=== PATIENT | male | born 1970 | race Caucasian/White ===

== ENCOUNTER 2016-09-16 15:07 | Emergency (ER) | payer MEDICARE ==
[2016-09-16] MEDS ORDERED: NORMAL SALINE 1000 ML 1,000 ML IV ONE (15:19)
--- NOTE | 2016-09-16 15:37 | ER Document Report ---
ED Substance Abuse / Acc. OD - General Mode of Arrival: Medic Information source: Patient, Emergency Med Personnel TRAVEL OUTSIDE OF THE [place] IN LAST 30 DAYS: No <VIET HYDE - Last Filed: 09/16/16 16:19> <ALIDA SABA - Last Filed: 09/16/16 19:48> - General Chief Complaint: Possible Overdose Stated Complaint: WEAKNESS Time Seen by Provider: 09/16/16 15:18 Notes: Patient is a 46 year old male presenting to the emergency department for possible overdose and seizures. Patient's son called EMS because the patient has taken 38 Klonopin (1 mg) over the past 48 hours. Patient denies any suicidal ideation and states he was just trying to get some sleep. Patient complains that he has had 4 seizures in the past 2 days as well. Patient takes kepra for his seizure disorder. Patient states he has been drinking plenty of fluids over the past several days. Patient also complains of a headache. Patient states he feels like he is going to have another seizure. Patient has no known drug allergies. (VIET HYDE) - Related Data Allergies/Adverse Reactions: No Known Allergies Allergy (Verified 09/16/16 15:29) Past Medical History - General Information source: Patient - Social History Smoking Status: Current Every Day Smoker Chew tobacco use (# tins/day): No Frequency of alcohol use: Occasional Drug Abuse: Prescription drugs Family History: None Patient has suicidal ideation: No Patient has homicidal ideation: No Neurological Medical History: Reports: Hx Seizures Psychiatric Medical History: Reports: Hx Depression Past Surgical History: Reports: Hx Orthopedic Surgery - Immunizations Hx Diphtheria, Pertussis, Tetanus Vaccination: No <VIET HYDE - Last Filed: 09/16/16 16:19> Review of Systems - Review of Systems Constitutional: No symptoms reported EENT: No symptoms reported Cardiovascular: No symptoms reported Respiratory: No symptoms reported Gastrointestinal: No symptoms reported Genitourinary: No symptoms reported Male Genitourinary: No symptoms reported Musculoskeletal: No symptoms reported Skin: No symptoms reported Hematologic/Lymphatic: No symptoms reported Neurological/Psychological: See HPI. denies: Suicidal ideation -: Yes All other systems reviewed and negative <VIET HYDE - Last Filed: 09/16/16 16:19> Physical Exam - Vital signs Interpretation: Normal - General General appearance: Alert, Other - Disheveled appearing In distress: Mild - HEENT Head: Normocephalic, Atraumatic Eyes: Normal Pupils: PERRL Mucous membranes: Dry - Respiratory Respiratory status: No respiratory distress Chest status: Nontender Breath sounds: Normal Chest palpation: Normal - Cardiovascular Rhythm: Regular Heart sounds: Normal auscultation Murmur: No - Abdominal Inspection: Normal Distension: No distension Bowel sounds: Normal Tenderness: Nontender Organomegaly: No organomegaly - Back Back: Normal, Nontender - Extremities General upper extremity: Normal inspection, Normal ROM, Normal strength General lower extremity: Normal inspection, Normal ROM, Normal strength - Neurological Neuro grossly intact: Yes Cognition: Normal Orientation: AAOx4 [place] Coma Scale Eye Opening: Spontaneous [place] Coma Scale Verbal: Oriented Jolanta Coma Scale Motor: Obeys Commands [place] Coma Scale Total: 15 Speech: Normal - Psychological Associated symptoms: Normal affect, Normal mood - Skin Skin Temperature: Warm Skin Moisture: Dry <VIET HYDE - Last Filed: 09/16/16 16:19> <ALIDA SABA - Last Filed: 09/16/16 19:48> - Vital signs Vitals: Temp Pulse Resp BP Pulse Ox 98.2 F 79 20 138/71 H 95 09/16/16 15:20 09/16/16 15:20 09/16/16 15:20 09/16/16 15:20 09/16/16 15:20 Course - Laboratory Result Diagrams: 09/16/16 15:44 09/16/16 15:44 <VIET HYDE - Last Filed: 09/16/16 16:19> - Laboratory Result Diagrams: 09/16/16 15:44 09/16/16 15:44 - Diagnostic Test Radiology reviewed: Reports reviewed <ALIDA SABA - Last Filed: 09/16/16 19:48> - Re-evaluation Re-evalutation: 09/16/16 18:12 Patient with no acute findings on blood work. Patient with stable vitals. Head CT within normal limits. The patient states that he has felt like he might have a seizure here in the emergency department. I have given him Valium and loaded him with Keppra. Patient states that he feels better. He is eating and drinking without a problem. He has had no further seizure activity or tremulousness. I have offered to transfer the patient to a facility with neurology. The patient adamantly refuses transfer and states that he feels better and he would prefer to go home. Patient states that he does not have any Klonopin at home. I will give him 6 Klonopin and he is to wean himself off of it so that he does not have benzodiazepine withdrawal seizures. Patient understands and agrees with this plan. 09/16/16 18:45 Son present in the emergency department, would like to know why the patient is receiving a prescription for Klonopin. Explained that the patient needs to wean himself off of Klonopin so that he does not have a seizure. Mom states that the patient actually has another 50 Klonopin at home. Instructed son do not fill the prescription. Apparently the patient recently moved in with his son and his so that he could try to get help with his drug addiction. Instructed to follow-up with [facility]. Son agrees with this plan and is grateful for care. He will watch the patient's medications at home. (ALIDA SABA) - Vital Signs Vital signs: Temp Pulse Resp BP Pulse Ox 97.7 F 76 18 125/88 H 96 09/16/16 18:30 09/16/16 18:30 09/16/16 18:30 09/16/16 18:30 09/16/16 18:30 - Laboratory Laboratory results interpreted by me: 09/16/16 09/16/16 15:44 15:44 RBC 6.08 H Hgb 13.4 L MCV 72 L MCH 22.0 L MCHC 30.7 L RDW 17.7 H Chloride 111 H Total Protein 6.1 L Salicylates < 1.0 L Acetaminophen < 10 L Discharge <VIET HYDE - Last Filed: 09/16/16 16:19> <ALIDA SABA - Last Filed: 09/16/16 19:48> - Discharge Clinical Impression: Seizure disorder, Benzodiazepine dependence, continuous Overdose Qualifiers: Encounter type: initial encounter Injury intent: accidental or unintentional Qualified Code(s): T50.901A - Poisoning by unspecified drugs, medicaments and biological substances, accidental (unintentional), initial encounter Condition: Stable Disposition: HOME, SELF-CARE Instructions: Seizure, Known Epileptic ([facility]), Overdose / Ingestion ([facility]) Additional Instructions: Please follow-up with your doctor tomorrow. Please wean yourself off of Klonopin. Please follow-up with a neurologist. Prescriptions: Clonazepam [Klonopin 1 mg Tablet] 1 mg PO PRN PRN #6 tablet PRN Reason: Referrals: JOY TENA MD [Primary Care Provider] - Follow up as needed ZAC MEEHAN MD [ACTIVE STAFF] - Follow up tomorrow Scribe Attestation: 09/16/16 19:48 I personally performed the services described in the documentation, reviewed and edited the documentation which was dictated to the scribe in my presence, and it accurately records my words and actions. (ALIDA SABA) Scribe Documentation - Scribe Written by Scribe:: Lakhwinder Martell 09/16/16 16:02 acting as scribe for :: Digna <VIET HYDE - Last Filed: 09/16/16 16:19>
[2016-09-16] MEDS ORDERED: LEVETIRACETAM 1500 MG/NACL-ISO 100 ML IV ONE (15:45)
[2016-09-16] MEDS ORDERED: DIAZEPAM INJ 10 MG/2 ML DISP.SYRIN IV ONE (15:45)
[2016-09-16 16:01] LABS: ABSOLUTE EOSINOPHILS # (AUTO) 0.5 10^3/uL (0.0-0.6); ABSOLUTE LYMPHOCYTES (AUTO) 1.6 10^3/uL (0.5-4.7); ABSOLUTE MONOCYTES (AUTO) 0.5 10^3/uL (0.1-1.4); ABSOLUTE NEUT (AUTO) 6.2 10^3/uL (1.7-8.2); BASOPHILS % (AUTO) 0.5 % (0-2); EOSINOPHILS % (AUTO) 5.9 % (0-6); HEMATOCRIT 43.6 % (37.9-51.0); HEMOGLOBIN 13.4 g/dL (13.5-17.0); HGB HCT DIFFERENCE -3.4; LYMPHOCYTES % (AUTO) 17.6 % (13-45); MEAN CORPUSCULAR HGB CONC 30.7 g/dL (32.0-36.0); MEAN CORPUSCULAR VOLUME 72 fl (80-97); MONOCYTES % (AUTO) 5.8 % (3-13); RED BLOOD COUNT 6.08 10^6/uL (4.35-5.55); RED CELL DISTRIBUTION WIDTH 17.7 % (11.5-14.0); SEGMENTED NEUTROPHILS % (AUTO) 70.2 % (42-78); WHITE BLOOD COUNT 8.9 10^3/uL (4.0-10.5)
[2016-09-16 16:11] LABS: ALANINE AMINOTRANSFERASE 37 U/L (21-72); ALBUMIN 3.7 g/dL (3.5-5.0); ALKALINE PHOSPHATASE 92 U/L (38-126); ANION GAP 9 (5-19); ASPARTATE AMINO TRANSFERASE 23 U/L (17-59); BILIRUBIN,DIRECT 0.3 mg/dL (0.0-0.4); BILIRUBIN,TOTAL 0.4 mg/dL (0.2-1.3); BLOOD UREA NITROGEN 10 mg/dL (7-20); CALCIUM 9.1 mg/dL (8.4-10.2); CARBON DIOXIDE 24 mmol/L (22-30); CHLORIDE 111 mmol/L (98-107); CREATININE RESULT 0.92 mg/dL (0.52-1.25); GLUCOSE 99 mg/dL (75-110); POTASSIUM 4.4 mmol/L (3.6-5.0); SODIUM 143.6 mmol/L (137-145); TOTAL PROTEIN 6.1 g/dL (6.3-8.2)
[2016-09-16 16:14] LABS: ALCOHOL < 10 mg/dL (NONE DETECTED)
--- NOTE | 2016-09-16 17:18 | RADIOLOGY REPORT (SQ) ---
EXAM DESCRIPTION: CT HEAD WITHOUT COMPLETED DATE/TIME: 09/16/2016 5:08 pm REASON FOR STUDY: head injury, pain COMPARISON: None. TECHNIQUE: Axial images acquired through the brain without intravenous contrast. Images reviewed wi th bone, brain and subdural windows. Images stored on PACS. All CT scanners at this facility use dose modulation, iterative reconstruction, and/or weight based d osing when appropriate to reduce radiation dose to as low as reasonably achievable (ALARA). [facility]: Dose Right [facility]: CareDose [facility]: Dose Right [facility]: Teradose 4D [facility]: [employer] RADIATION DOSE: 64.61 mGy. LIMITATIONS: None. FINDINGS: VENTRICLES: Normal size and contour. CEREBRUM: No masses. No hemorrhage. No midline shift. Normal bryant/white matter differentiation. N o evidence for acute infarction. CEREBELLUM: No masses. No hemorrhage. No alteration of density. No evidence for acute infarction. EXTRAAXIAL SPACES: No fluid collections. No masses. ORBITS AND GLOBE: No intra- or extraconal masses. Normal contour of globe without masses. CALVARIUM: Prior right occipital craniotomy. No acute fracture. PARANASAL SINUSES: No fluid or mucosal thickening. SOFT TISSUES: No mass or hematoma. OTHER: No other significant finding. IMPRESSION: No acute intracranial abnormality identified. No skull fracture. TECHNICAL DOCUMENTATION: JOB ID: [id number] Quality ID # [id number]: Final reports with documentation of one or more dose reduction techniques (e.g., Au tomated exposure control, adjustment of the mA and/or kV according to patient size, use of iterative reconstruction technique) 2010 [employer]- All Rights Reserved
[2016-09-16 18:36] VITALS: BP 125/88
--- NOTE | 2016-09-17 13:01 | EKG REPORT ---
SEVERITY:- ABNORMAL ECG - SINUS RHYTHM RIGHT BUNDLE BRANCH BLOCK : Confirmed by: Stephanie Walter MD 17-Sep-2016 13:00:48
== END 2016-09-16 18:33 | disposition home or self-care (01) ==
LOC: ER 15:07
DX: T42.4X1A Poisoning by benzodiazepines, accidental (unintentional), initial encounter (principal); G40.909 Epilepsy, unspecified, not intractable, without status epilepticus; F13.20 Sedative, hypnotic or anxiolytic dependence, uncomplicated; R53.1 Weakness; F17.200 Nicotine dependence, unspecified, uncomplicated
CPT/HCPCS: 93005; 99284; 96374; 96375; 36415; 80307 ×3; 85025; 80053; 70450; 93010; J3360; J7030; J1953

== ENCOUNTER 2016-09-29 00:27 | Inpatient (IN) | payer MEDICARE ==
--- NOTE | 2016-09-29 00:53 | ER Document Report ---
ED General - General Chief Complaint: Altered Mental Status Stated Complaint: ALTERED METAL STATUS Time Seen by Provider: 09/29/16 00:39 Notes: Patient is a 46-year-old male who comes emergency department for altered mental status. However EMS reports the patient has a history of violent behavior and suicide attempts, he is on multiple psychiatric medications including Haldol, he reportedly has been taking more of his medications that he is supposed to with multiple missing pills, he is currently living with his son. Patient unable to tell me where he is, he has also been reportedly having visual hallucinations. Patient denies any pain. No other family with him at this time , difficult to obtain history from patient. TRAVEL OUTSIDE OF THE [place] IN LAST 30 DAYS: No - Related Data Allergies/Adverse Reactions: No Known Allergies Allergy (Verified 09/16/16 15:29) Past Medical History - General Information source: Patient - Social History Smoking Status: Never Smoker Drug Abuse: None Lives with: Family Family History: None - Past Medical History Cardiac Medical History: Reports: Other - pacemaker Neurological Medical History: Reports: Hx Seizures, Other - hx TBI Renal/ Medical History: Denies: Hx Peritoneal Dialysis Psychiatric Medical History: Reports: Hx Depression Past Surgical History: Reports: Hx Orthopedic Surgery - Immunizations Hx Diphtheria, Pertussis, Tetanus Vaccination: No Review of Systems - Review of Systems Constitutional: No symptoms reported EENT: No symptoms reported Cardiovascular: No symptoms reported Respiratory: No symptoms reported Gastrointestinal: No symptoms reported Genitourinary: No symptoms reported Male Genitourinary: No symptoms reported Musculoskeletal: No symptoms reported Skin: No symptoms reported Hematologic/Lymphatic: No symptoms reported Neurological/Psychological: See HPI Physical Exam - Vital signs Vitals: Temp Pulse Resp BP Pulse Ox 98 F 97 12 121/90 H 90 L 09/29/16 00:40 09/29/16 00:40 09/29/16 00:40 09/29/16 00:40 09/29/16 00:40 Interpretation: Normal - General General appearance: Appears well, Alert In distress: None - HEENT Head: Normocephalic, Atraumatic Eyes: Normal Extraocular movements intact: Yes Eyelashes: Normal Pupils: PERRL - Respiratory Respiratory status: No respiratory distress Chest status: Nontender Breath sounds: Normal. No: Decreased air movement Chest palpation: Normal - Cardiovascular Rhythm: Regular, Tachycardia Heart sounds: Normal auscultation, S1 appreciated, S2 appreciated Murmur: No - Abdominal Inspection: Normal Distension: No distension Bowel sounds: Normal Tenderness: Nontender Organomegaly: No organomegaly - Back Back: Normal, Nontender - Extremities General upper extremity: Normal inspection, Nontender, Normal color, Normal ROM , Normal temperature General lower extremity: Normal inspection, Nontender, Normal color, Normal ROM , Normal temperature, Normal weight bearing. No: Tino's sign - Neurological Neuro grossly intact: Yes Cognition: Normal Orientation: AAOx4 [place] Coma Scale Eye Opening: Spontaneous Jolanta Coma Scale Verbal: Oriented [place] Coma Scale Motor: Obeys Commands Jol[place] Coma Scale Total: 15 Speech: Normal Motor strength normal: LUE, RUE, LLE, RLE Sensory: Normal - Psychological Associated symptoms: Other - Patient with a somewhat flat affect. He occasionally makes bizarre statements. However he is cooperative and calm, he does not appear agitated, he does not appear to be responding to any internal stimuli - Skin Skin Temperature: Warm Skin Moisture: Dry Skin Color: Normal Course - Re-evaluation Re-evalutation: Patient with occasional confusion, but is not hallucinating, denies SI or HI, is not in distress. He cooperates with a normal neurological exam otherwise. Patient noted to be hypoxic, he actually drops down into the upper 80s off of oxygen, when placed on nasal cannula this returns to normal. Lungs sound clear , no tachypnea, no cough, no fever, patient borderline tachycardic. CBC, chemistry unremarkable, chest x-ray showing questionable vascular congestion although I do not hear Rales on exam. Patient has a pacemaker. Patient continues to have hypoxia when oxygen is turned off. Because of this CTA was ordered, this shows multifocal pneumonia. Given Levaquin. Patient was discussed with Dr. Lizama. She has a head with no abnormality. Venous blood gas will have to be repeated. Psychiatry consult placed, discussed with Dr. Jamil, patient will be admitted to the [facility]. - Vital Signs Vital signs: Temp Pulse Resp BP Pulse Ox 98 F 97 17 118/85 96 09/29/16 00:40 09/29/16 00:40 09/29/16 06:01 09/29/16 06:01 09/29/16 06:01 - Laboratory Result Diagrams: 09/29/16 00:55 09/29/16 00:55 Laboratory results interpreted by me: 09/29/16 09/29/16 09/29/16 00:55 00:55 06:38 RBC 6.24 H MCV 72 L MCH 22.4 L MCHC 31.2 L RDW 17.2 H Urine Blood SMALL H Salicylates < 1.0 L Acetaminophen < 10 L Discharge - Discharge Clinical Impression: Hypoxia, Multifocal pneumonia, Confusion, History of traumatic brain injury Condition: Stable Disposition: ADMITTED INPATIENT Admitting Provider: Hospitalist Unit Admitted: IMCU Referrals: MARINE ALVAREZ MD [Primary Care Provider] - Follow up as needed
[2016-09-29 01:11] LABS: ABSOLUTE EOSINOPHILS # (AUTO) 0.1 10^3/uL (0.0-0.6); ABSOLUTE LYMPHOCYTES (AUTO) 1.4 10^3/uL (0.5-4.7); ABSOLUTE MONOCYTES (AUTO) 0.7 10^3/uL (0.1-1.4); BASOPHILS % (AUTO) 0.5 % (0-2); EOSINOPHILS % (AUTO) 1.4 % (0-6); HEMATOCRIT 44.9 % (37.9-51.0); HGB HCT DIFFERENCE -2.9; LYMPHOCYTES % (AUTO) 13.4 % (13-45); MEAN CORPUSCULAR HEMOGLOBIN 22.4 pg (27.0-33.4); MEAN CORPUSCULAR HGB CONC 31.2 g/dL (32.0-36.0); MEAN CORPUSCULAR VOLUME 72 fl (80-97); MONOCYTES % (AUTO) 6.7 % (3-13); RED BLOOD COUNT 6.24 10^6/uL (4.35-5.55); RED CELL DISTRIBUTION WIDTH 17.2 % (11.5-14.0); WHITE BLOOD COUNT 10.3 10^3/uL (4.0-10.5)
[2016-09-29 01:20] LABS: BLOOD UREA NITROGEN 10 mg/dL (7-20); CALCIUM 9.6 mg/dL (8.4-10.2); CREATININE RESULT 0.81 mg/dL (0.52-1.25); GLUCOSE 90 mg/dL (75-110)
[2016-09-29 01:21] LABS: ALANINE AMINOTRANSFERASE 44 U/L (21-72); ALBUMIN 4.2 g/dL (3.5-5.0); ALKALINE PHOSPHATASE 123 U/L (38-126); ANION GAP 13 (5-19); ASPARTATE AMINO TRANSFERASE 28 U/L (17-59); BILIRUBIN,DIRECT 0.4 mg/dL (0.0-0.4); BILIRUBIN,TOTAL 0.6 mg/dL (0.2-1.3); CARBON DIOXIDE 27 mmol/L (22-30); CHLORIDE 101 mmol/L (98-107); POTASSIUM 4.1 mmol/L (3.6-5.0); SODIUM 140.8 mmol/L (137-145); TOTAL PROTEIN 6.8 g/dL (6.3-8.2)
[2016-09-29 01:22] LABS: ALCOHOL < 10 mg/dL (NONE DETECTED)
--- NOTE | 2016-09-29 01:35 | RADIOLOGY REPORT (SQ) ---
EXAM DESCRIPTION: CHEST SINGLE VIEW COMPLETED DATE/TIME: 09/29/2016 1:22 am REASON FOR STUDY: borderline low oxygen level COMPARISON: None. EXAM PARAMETERS: NUMBER OF VIEWS: One view. TECHNIQUE: Single frontal radiographic view of the chest acquired. RADIATION DOSE: NA LIMITATIONS: None. FINDINGS: LUNGS AND PLEURA: Moderate lung volumes. Pulmonary vascular congestion. Vessel artifact or 0.4 cm possible calcified granuloma of the left mid lung field. MEDIASTINUM AND HILAR STRUCTURES: No masses. Contour normal. HEART AND VASCULAR STRUCTURES: Heart normal in size. Normal vasculature. BONES: No acute findings. HARDWARE: Electronic stimulation device with left nuchal leads. OTHER: No other significant finding. IMPRESSION: Pulmonary vascular congestion. Moderate lung volumes. TECHNICAL DOCUMENTATION: JOB ID: [id number]
[2016-09-29 03:15] LABS: CREATINE KINASE MB 1.16 ng/mL (<4.55)
[2016-09-29 03:22] LABS: TROPONIN I < 0.012 ng/mL
--- NOTE | 2016-09-29 05:49 | RADIOLOGY REPORT (SQ) ---
EXAM DESCRIPTION: CTA CHEST COMPLETED DATE/TIME: 09/29/2016 5:25 am REASON FOR STUDY: hypoxia COMPARISON: CR, same day. TECHNIQUE: CT scan of the chest performed using helical scanning technique with dynamic intravenous contrast injection. Images reviewed with lung, soft tissue and bone windows. Reconstructed coronal and sagittal MPR images reviewed. Additional 3 dimensional post-processing performed to develop Maximal Intensity Projection images (NV P). All images stored on PACS. All CT scanners at this facility use dose modulation, iterative reconstruction, and/or weight based d osing when appropriate to reduce radiation dose to as low as reasonably achievable (ALARA). [facility]: Dose Right [facility]: CareDose [facility]: Dose Right [facility]: Teradose 4D [facility]: [employer] CONTRAST TYPE AND DOSE: 100 ml Isovue-300 RENAL FUNCTION: Creatinine 0.8 RADIATION DOSE: Up-to-date CT equipment and radiation dose reduction techniques were employed. CTDIv ol: 52.2 mGy. DLP: 1365 mGy-cm. . LIMITATIONS: None. FINDINGS: LUNGS AND PLEURA: Small consolidative opacity of the superior segment of the left lower lo be. Small patchiness of the lingula. Small scattered atelectasis or scar bilaterally. Small intrap arenchymal cystic emphysema focally of the right upper lobe along the oblique fissure. AORTA AND GREAT VESSELS: No aneurysm or dissection. HEART: No pericardial effusion. Small coronary arterial calcification. PULMONARY ARTERIES: No emboli visualized in the main pulmonary arteries or the segmental branches. HILAR AND MEDIASTINAL STRUCTURES: No identified masses or abnormal nodes. HARDWARE: Left cardiac stimulation device and leads. UPPER ABDOMEN: No significant findings. Limited exam. THYROID AND OTHER SOFT TISSUES: No masses. No adenopathy. BONES: No acute or significant finding. 3D MIPS: Confirm above findings. OTHER: No other significant finding. IMPRESSION: Small multifocal pneumonia, atelectasis, and/or scar. No pulmonary emboli. TECHNICAL DOCUMENTATION: JOB ID: [id number] Quality ID # [id number]: Final reports with documentation of one or more dose reduction techniques (e.g., Au tomated exposure control, adjustment of the mA and/or kV according to patient size, use of iterative reconstruction technique) 2010 [email or web address]- All Rights Reserved
[2016-09-29] MEDS ORDERED: LEVOFLOXACIN 750 MG/D5W RTU 150 ML IV ONE (06:04)
[2016-09-29 07:06] LABS: APPEARANCE,URINE CLEAR; BILIRUBIN,URINE NEGATIVE (NEGATIVE); GLUCOSE, URINE NEGATIVE (NEGATIVE); KETONES,URINE NEGATIVE (NEGATIVE); LEUKOCYTE ESTERASE,URINE NEGATIVE (NEGATIVE); NITRITE,URINE NEGATIVE (NEGATIVE); PROTEIN,URINE NEGATIVE (NEGATIVE); URINE SPECIFIC GRAVITY 1.005; UROBILINOGEN,URINE NEGATIVE mg/dL (<2.0)
[2016-09-29 07:21] LABS: URINE BARBITURATES SCREEN NEGATIVE; URINE METHADONE SCREEN NEGATIVE; URINE OPIATES LOW NEGATIVE; URINE PHENCYCLIDINE SCREEN NEGATIVE
--- NOTE | 2016-09-29 07:28 | RADIOLOGY REPORT (SQ) ---
EXAM DESCRIPTION: CT HEAD WITHOUT COMPLETED DATE/TIME: 09/29/2016 7:04 am REASON FOR STUDY: confusion COMPARISON: 09/16/2016. TECHNIQUE: Axial images acquired through the brain without intravenous contrast. Images reviewed wi th bone, brain and subdural windows. Images stored on PACS. All CT scanners at this facility use dose modulation, iterative reconstruction, and/or weight based d osing when appropriate to reduce radiation dose to as low as reasonably achievable (ALARA). [facility]: Dose Right [facility]: CareDose [facility]: Dose Right [facility]: Teradose 4D [facility]: [employer] RADIATION DOSE: Up-to-date CT equipment and radiation dose reduction techniques were employed. CTDIv ol: 64.6 mGy. DLP: 1292 mGy-cm. mGy. LIMITATIONS: None. FINDINGS: VENTRICLES: Normal size and contour. CEREBRUM: No masses. No hemorrhage. No midline shift. Normal bryant/white matter differentiation. N o evidence for acute infarction. CEREBELLUM: No masses. No hemorrhage. No alteration of density. No evidence for acute infarction. EXTRAAXIAL SPACES: No fluid collections. No masses. ORBITS AND GLOBE: No intra- or extraconal masses. Normal contour of globe without masses. CALVARIUM: No fracture. Right posterior parietal craniotomy hardware. PARANASAL SINUSES: No fluid or mucosal thickening. SOFT TISSUES: No mass or hematoma. OTHER: No other significant finding. IMPRESSION: No acute findings. Right posterior parietal craniotomy hardware. TECHNICAL DOCUMENTATION: JOB ID: [id number] Quality ID # [id number]: Final reports with documentation of one or more dose reduction techniques (e.g., Au tomated exposure control, adjustment of the mA and/or kV according to patient size, use of iterative reconstruction technique) 2010 [employer]- All Rights Reserved
[2016-09-29 08:02] LABS: VENOUS BLOOD PCO2 53.4 mmHg (35-63); VENOUS BLOOD PH 7.34 (7.30-7.42)
[2016-09-29] MEDS ORDERED: IPRATROPIUM/ALBUTEROL 0.5-2.5 MG/3 ML AMPUL NEB PRN (08:35)
[2016-09-29] MEDS ORDERED: ACETAMINOPHEN 325 MG TABLET PO PRN (08:35)
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
--- NOTE | 2016-09-29 08:38 | EKG REPORT ---
SEVERITY:- ABNORMAL ECG - SINUS RHYTHM NONSPECIFIC INTRAVENTRICULAR CONDUCTION DELAY MINIMAL ST DEPRESSION : Confirmed by: Kalyani Lott 29-Sep-2016 08:37:39
[2016-09-29] MEDS ORDERED: HALOPERIDOL 5 MG TABLET PO SCH ×2 (10:00→22:00)
[2016-09-29] MEDS ORDERED: SERTRALINE HCL 50 MG TABLET PO SCH (10:00)
[2016-09-29] MEDS: LEVETIRACETAM 500 MG TABLET PO SCH ×2 (12:26→21:45)
[2016-09-29] MEDS: LACTOBACILLUS ACIDOPHILUS 250 MG TAB PO SCH ×2 (12:26→17:55)
[2016-09-29] MEDS: LAMOTRIGINE 100 MG TABLET PO SCH ×2 (12:27→21:46)
[2016-09-29] MEDS: FAMOTIDINE 20 MG TABLET PO SCH ×2 (12:27→21:46)
[2016-09-29] MEDS: GABAPENTIN 300 MG CAPSULE PO SCH ×2 (12:27→21:46)
[2016-09-29] MEDS: CEFTRIAXONE 1 GM/D5W RTU 50 ML IV SCH (12:28)
[2016-09-29] MEDS: ENOXAPARIN SODIUM INJ 40 MG/0.4 ML DISP.SYRIN SUBCUT SCH (12:29)
[2016-09-29] MEDS: NORMAL SALINE 1000 ML 1,000 ML IV PRN (12:50)
[2016-09-29] MEDS: AZITHROMYCIN 500 MG in DEXTROSE 5%-WATER 250 ML IV SCH (13:14)
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
[2016-09-30 05:14] LABS: ABSOLUTE EOSINOPHILS # (AUTO) 0.2 10^3/uL (0.0-0.6); ABSOLUTE LYMPHOCYTES (AUTO) 1.4 10^3/uL (0.5-4.7); ABSOLUTE MONOCYTES (AUTO) 0.5 10^3/uL (0.1-1.4); ABSOLUTE NEUT (AUTO) 4.7 10^3/uL (1.7-8.2); BASOPHILS % (AUTO) 0.7 % (0-2); EOSINOPHILS % (AUTO) 3.4 % (0-6); HEMATOCRIT 45.1 % (37.9-51.0); HGB HCT DIFFERENCE -3.1; LYMPHOCYTES % (AUTO) 20.5 % (13-45); MEAN CORPUSCULAR HEMOGLOBIN 22.5 pg (27.0-33.4); MEAN CORPUSCULAR HGB CONC 30.9 g/dL (32.0-36.0); MEAN CORPUSCULAR VOLUME 73 fl (80-97); MONOCYTES % (AUTO) 7.7 % (3-13); RED BLOOD COUNT 6.21 10^6/uL (4.35-5.55); RED CELL DISTRIBUTION WIDTH 17.8 % (11.5-14.0); SEGMENTED NEUTROPHILS % (AUTO) 67.7 % (42-78); WHITE BLOOD COUNT 6.9 10^3/uL (4.0-10.5)
[2016-09-30 05:29] LABS: ANION GAP 11 (5-19); BLOOD UREA NITROGEN 13 mg/dL (7-20); CALCIUM 9.5 mg/dL (8.4-10.2); CARBON DIOXIDE 29 mmol/L (22-30); CHLORIDE 103 mmol/L (98-107); CREATININE RESULT 0.89 mg/dL (0.52-1.25); GLUCOSE 97 mg/dL (75-110); POTASSIUM 4.7 mmol/L (3.6-5.0); SODIUM 142.9 mmol/L (137-145)
[2016-09-30] MEDS: NORMAL SALINE 1000 ML 1,000 ML IV PRN (06:08)
[2016-09-30] MEDS: SERTRALINE HCL 50 MG TABLET PO SCH (09:44)
[2016-09-30] MEDS: LEVETIRACETAM 500 MG TABLET PO SCH ×2 (09:44→21:16)
[2016-09-30] MEDS: LACTOBACILLUS ACIDOPHILUS 250 MG TAB PO SCH ×2 (09:44→17:17)
[2016-09-30] MEDS: GABAPENTIN 300 MG CAPSULE PO SCH ×2 (09:44→21:16)
[2016-09-30] MEDS: LAMOTRIGINE 100 MG TABLET PO SCH ×2 (09:44→21:17)
[2016-09-30] MEDS: FAMOTIDINE 20 MG TABLET PO SCH ×2 (09:44→21:16)
[2016-09-30] MEDS: CEFTRIAXONE 1 GM/D5W RTU 50 ML IV SCH (09:45)
[2016-09-30] MEDS: ENOXAPARIN SODIUM INJ 40 MG/0.4 ML DISP.SYRIN SUBCUT SCH (09:45)
--- NOTE | 2016-09-30 10:33 | PDOC PROGRESS REPORT ---
Subjective Progress Note for:: 09/30/16 Subjective:: reason for visit; f/u pneumonia, encephalopathy hospital course: IFEOMA SALAZAR is a 46 year old male sent by EMS from home where he normally lives with his son and suffers late effects of previous TBI including seizures and violent mood swings. He is very tangential and answers not always appropriate to the questions, no family present so hx taken from review of the record and ED provider as he cannot provide reliable hx or ROS. There is report he has been taking more of his meds than Rx'd with pills unaccounted for; also reports of visual hallucinations. Pt reports REESE that is dull aching left sided parietal area pain that is constant since a head strike after seizure one week ago while lying on the couch. Interestingly he can recount the names and doses of his meds accurately, at least when compared to pill bottles available at the bedside, but cannot remember events of the last 24 -48hrs including how or why he got to the hospital. eval in ED shows hypoxia with RA sats in high 80's and ct chest findings of possible multifocal airspace disease. as a result we were asked to admit for further evaluation and management. he has shown good improvement with abx and is no longer reqquiring supplemental O2, he is afebril and VSS. he is more alert and appropriate, nurseing reports no bizarre behaviours or aggression. he was evaluated by mental health who recommended changes to his usual home regimen but did not feel he warranted IVC and placment at this time. his son Quinn, reports finding him an inpatient detox and mental health facility called [facility] in [place], [place] where he intends to take him upon discharge. ROS: denies palpitations, fevers/chills, n/v/d. c/o sharp, stabbing Rt rib pain, constant, nonradiating, worse with inspiration and sitting forward, improved with lying back and no other asct'd symptoms. all systems reviewed, see above, remaining systems negative Physical Exam Vital Signs: Temp Pulse Resp BP Pulse Ox 97.7 F 78 18 146/87 H 100 09/30/16 07:36 09/30/16 08:00 09/30/16 08:00 09/30/16 08:00 09/30/16 08:00 Intake & Output 09/29/16 09/30/16 10/01/16 06:59 06:59 06:59 Intake Total 3636 Output Total 0 Balance 3636 Weight 120.6 kg General appearance: PRESENT: no acute distress, well-developed, well-nourished Head exam: PRESENT: atraumatic, normocephalic Eye exam: PRESENT: EOMI. ABSENT: conjunctival injection, scleral icterus Mouth exam: PRESENT: moist, neck supple Neck exam: PRESENT: full ROM. ABSENT: lymphadenopathy Respiratory exam: PRESENT: crackles, unlabored. ABSENT: accessory muscle use, wheezes Cardiovascular exam: PRESENT: RRR. ABSENT: systolic murmur Pulses: PRESENT: normal radial pulses, normal dorsalis pedis pul GI/Abdominal exam: PRESENT: normal bowel sounds, soft. ABSENT: tenderness Extremities exam: ABSENT: calf tenderness, pedal edema Musculoskeletal exam: PRESENT: ambulatory, full ROM Neurological exam: PRESENT: alert, awake, oriented to person, oriented to place , oriented to time Psychiatric exam: PRESENT: flat affect, normal mood Focused psych exam: ABSENT: pressured speech, psychomotor agitation Skin exam: PRESENT: dry, warm Results Laboratory Results: 09/30/16 04:40 09/30/16 04:40 09/30/16 09/30/16 04:40 04:40 WBC 6.9 RBC 6.21 H Hgb 14.0 Hct 45.1 MCV 73 L MCH 22.5 L MCHC 30.9 L RDW 17.8 H Plt Count 192 Seg Neutrophils % 67.7 Lymphocytes % 20.5 Monocytes % 7.7 Eosinophils % 3.4 Basophils % 0.7 Absolute Neutrophils 4.7 Absolute Lymphocytes 1.4 Absolute Monocytes 0.5 Absolute Eosinophils 0.2 Absolute Basophils 0.0 Sodium 142.9 Potassium 4.7 Chloride 103 Carbon Dioxide 29 Anion Gap 11 BUN 13 Creatinine 0.89 Est GFR ( Amer) > 60 Est GFR (Non-Af Amer) > 60 Glucose 97 Calcium 9.5 Assessment & Plan - Diagnosis (1) Multifocal pneumonia Is this a current diagnosis for this admission?: YesPlan: by imaging, hx of symptoms is unclear at this time, he reports subjective fever at home a few days ago. continue empiric abx for CAP, supplemental O2, nebs and monitor for response. blood and sputum culxs NO GROWTH SO FAR (2) Hypoxia Is this a current diagnosis for this admission?: YesPlan: resolved. likely 2/2 above with emphysematous changes also noted on ct chest. treat as above (3) Seizure disorder Is this a current diagnosis for this admission?: YesPlan: stable; reported hx of recent seizure but also reported hx of medication noncompliance; resume reported home regimen, seizure precautions, neuro cks for the first 24hrs negative; monitor for recurrence (4) Confusion Is this a current diagnosis for this admission?: YesPlan: transient, seems to have resolved; likely encephalopathy related to the above, possible medication overdose/reaction to inappropriate use. treat and monitor as above (5) History of traumatic brain injury Is this a current diagnosis for this admission?: Yes - Time Time Spent with patient: 25-34 minutes Anticipated discharge: Home Within: within 24 hours
[2016-09-30] MEDS: AZITHROMYCIN 500 MG in DEXTROSE 5%-WATER 250 ML IV SCH (10:43)
--- NOTE | 2016-09-30 22:22 | EKG REPORT ---
SEVERITY:- ABNORMAL ECG - SINUS RHYTHM RIGHT BUNDLE BRANCH BLOCK : Confirmed by: Kalyani Lott 30-Sep-2016 22:22:15
[2016-10-01] MEDS ORDERED: LORAZEPAM 1 MG TABLET PO PRN (01:22)
[2016-10-01] MEDS ORDERED: LORAZEPAM INJ 2 MG/1 ML VIAL ONE (07:34)
[2016-10-01 07:36] LABS: ABSOLUTE EOSINOPHILS # (AUTO) 0.3 10^3/uL (0.0-0.6); ABSOLUTE LYMPHOCYTES (AUTO) 1.8 10^3/uL (0.5-4.7); ABSOLUTE MONOCYTES (AUTO) 0.6 10^3/uL (0.1-1.4); ABSOLUTE NEUT (AUTO) 6.2 10^3/uL (1.7-8.2); BASOPHILS % (AUTO) 0.4 % (0-2); EOSINOPHILS % (AUTO) 3.2 % (0-6); HEMATOCRIT 44.2 % (37.9-51.0); HEMOGLOBIN 13.6 g/dL (13.5-17.0); HGB HCT DIFFERENCE -3.4; LYMPHOCYTES % (AUTO) 20.2 % (13-45); MEAN CORPUSCULAR HEMOGLOBIN 22.4 pg (27.0-33.4); MEAN CORPUSCULAR HGB CONC 30.8 g/dL (32.0-36.0); MEAN CORPUSCULAR VOLUME 73 fl (80-97); MONOCYTES % (AUTO) 7.1 % (3-13); RED CELL DISTRIBUTION WIDTH 17.8 % (11.5-14.0); SEGMENTED NEUTROPHILS % (AUTO) 69.1 % (42-78)
[2016-10-01 07:57] LABS: ANION GAP 10 (5-19); BLOOD UREA NITROGEN 11 mg/dL (7-20); CALCIUM 9.7 mg/dL (8.4-10.2); CARBON DIOXIDE 29 mmol/L (22-30); CHLORIDE 103 mmol/L (98-107); CREATININE RESULT 0.84 mg/dL (0.52-1.25); GLUCOSE 91 mg/dL (75-110); SODIUM 142.4 mmol/L (137-145)
[2016-10-01 09:07] LABS: MAGNESIUM 1.6 mg/dL (1.6-2.3); PHOSPHORUS 4.4 mg/dL (2.5-4.5)
[2016-10-01] MEDS ORDERED: LEVETIRACETAM 1000 MG/NACL-ISO 100 ML IV SCH (10:00)
[2016-10-01] MEDS: FAMOTIDINE 20 MG TABLET PO SCH (10:18)
[2016-10-01] MEDS: LAMOTRIGINE 100 MG TABLET PO SCH (10:18)
[2016-10-01] MEDS: SERTRALINE HCL 50 MG TABLET PO SCH (10:18)
[2016-10-01] MEDS: LACTOBACILLUS ACIDOPHILUS 250 MG TAB PO SCH (10:18)
[2016-10-01] MEDS: GABAPENTIN 300 MG CAPSULE PO SCH (10:18)
[2016-10-01] MEDS: ENOXAPARIN SODIUM INJ 40 MG/0.4 ML DISP.SYRIN SUBCUT SCH (10:19)
[2016-10-01] MEDS: CEFTRIAXONE 1 GM/D5W RTU 50 ML IV SCH (10:57)
--- NOTE | 2016-10-01 12:18 | PDOC TRANSFER SUMMARY ---
General Admission Date/PCP: 09/29/16 08:35 MARINE ALVAREZ MD Transfer Date: 10/01/16 Accepting Facility: [facility] Accepting Physician: DR BROUSSARD Resuscitation Status: Full Code - Transfer Diagnosis (1) Seizure disorder Is this a current diagnosis for this admission?: YesDiagnosis Summary: failing treatment with Keppra 1000mg Bid, Lamictal 200 mg Bid and Neurontin 300mg Bid with breakthrough seizure this morning. We do not have neurology, can no longer perform EEG and he cannot get MRI due to metal plate in his head from prior surgery. I contacted [facility] and Dr Broussard has graciously agreed to accept for further treatment and evaluation. (2) Multifocal pneumonia Is this a current diagnosis for this admission?: YesDiagnosis Summary: he was noted to be hypoxic in the ED with RA sats in high 80's which led to CXR with findings of pulm vasc congestion which led to a CTA chest that shows a multifocal pneumonia, mostly left sided with normal WBCs, no growth on blood cultures and not able to provide adequate sputum. He's been treated empirically for CAP with zmax and rocephin with resolution of hypoxia and no continued symptoms and no overt s/s of aspiration prior to his seizure. recommend completing usual course of abx for CAP. he did received one dose of levaquin by ED MD prior to admission. (3) Hypoxia Is this a current diagnosis for this admission?: YesDiagnosis Summary: resolved. 96% RA for me this morning (4) Confusion Is this a current diagnosis for this admission?: YesDiagnosis Summary: initially thought secondary to pneumonia in the setting of TBI and seizure d/o with behavioral disturbances. He was evaluated by mental health who recommended cessation of his home haldol and reduction of his zoloft to 50mg/d. Now considerations for worsening of his seizure disorder with post ictal confusion underway with transfer to tertiary center for further evaluation. 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 (6) Polysubstance (excluding opioids) dependence Is this a current diagnosis for this admission?: YesDiagnosis Summary: his son Quinn reports hx of benzo and opiate abuse in the past. - Transfer Medications Home Medications: Benztropine Mesylate [Cogentin 1 mg Tablet] 1 mg PO QHS 09/29/16 Bupropion HCl [Wellbutrin Xl 150 mg 24hr Tablet] 150 mg PO QAM 09/29/16 Clonazepam [Klonopin 1 mg Tablet] 1 mg PO Q8HP PRN 09/29/16 Ferrous Sulfate [Feosol 325 mg Tablet] 325 mg PO BID 09/29/16 Gabapentin [Neurontin 300 mg Capsule] 300 mg PO Q12 09/29/16 Haloperidol [Haldol 5 mg Tablet] 5 mg PO QAM 09/29/16 Haloperidol [Haldol 5 mg Tablet] 10 mg PO QHS 09/29/16 Lamotrigine [Lamictal] 200 mg PO Q12 09/29/16 Prazosin HCl [Minipress] 6 mg PO QHS 09/29/16 Sertraline HCl [Zoloft] 100 mg PO DAILY 09/29/16 Trazodone HCl [Desyrel] 300 mg PO QHS 09/29/16 Zolpidem Tartrate [Ambien] 20 mg PO QHS 09/29/16 Transfer Medications: Current Medications Acetaminophen (Tylenol 325 Mg Tablet) 650 mg PO Q4HP PRN PRN Reason: pain or temp greater than 101F Stop: 10/29/16 08:34 Last Admin: 09/29/16 17:59 Dose: 650 mg Albuterol/Ipratropium (Duoneb 3 Ml Ampul) 3 ml NEB RTQ4HP PRN PRN Reason: SHORTNESS OF BREATH Stop: 10/29/16 08:34 Enoxaparin Sodium (Lovenox Inj 40 Mg/0.4 Ml Disp.Syrin) 40 mg SUBCUT DAILY URIAH Stop: 10/29/16 09:59 Last Admin: 10/01/16 10:19 Dose: 40 mg Famotidine (Pepcid 20 Mg Tablet) 20 mg PO Q12 URIAH Stop: 10/29/16 09:59 Last Admin: 10/01/16 10:18 Dose: 20 mg Gabapentin (Neurontin 300 Mg Capsule) 300 mg PO Q12 URIAH Stop: 10/29/16 09:59 Last Admin: 10/01/16 10:18 Dose: 300 mg Azithromycin 500 mg/ Dextrose 250 mls @ 250 mls/hr IV DAILY URIAH Stop: 10/06/16 09:59 Last Admin: 09/30/16 10:43 Dose: 500 mg Ceftriaxone Sodium/Dextrose (Rocephin Rtu 1 Gm/D5w 50 Ml Premix) 50 mls @ 100 mls/hr IV DAILY URIAH Stop: 10/06/16 09:59 Last Admin: 10/01/16 10:57 Dose: 50 ml Levetiracetam (Keppra Rtu 1000 Mg/Nacl-Iso 100 Ml Premix) 100 mls @ 400 mls/hr IV Q12 URIAH Stop: 10/31/16 09:59 Last Admin: 10/01/16 10:18 Dose: 100 ml Lactobacillus Acidophilus (Bacid 250 Mg Tablet) 500 mg PO BID URIAH Stop: 10/29/16 09:59 Last Admin: 10/01/16 10:18 Dose: 500 mg Lamotrigine (Lamictal 100 Mg Tablet) 200 mg PO Q12 URIAH Stop: 10/29/16 09:59 Last Admin: 10/01/16 10:18 Dose: 200 mg Lorazepam (Ativan 1 Mg Tablet) 2 mg PO Q4HP PRN PRN Reason: ANXIETY Stop: 10/08/16 01:21 Last Admin: 10/01/16 01:30 Dose: 2 mg Sertraline HCl (Zoloft 50 Mg Tablet) 50 mg PO DAILY URIAH Stop: 10/30/16 09:59 Last Admin: 10/01/16 10:18 Dose: 50 mg Sodium Chloride (Saline Flush 2.5 Ml Monoject Prefil Syrin) 2.5 ml IV Q8 URIAH Stop: 10/29/16 13:59 Last Admin: 10/01/16 05:25 Dose: 2.5 ml - Allergies Allergies/Adverse Reactions: No Known Allergies Allergy (Verified 09/16/16 15:29) - Diet/Activity Discharge Diet: As Tolerated Discharge Activity: Bedrest Hospital Course Hospital Course: IFEOMA SALAZAR is a 46 year old male sent by EMS from home where he normally lives with his son and suffers late effects of previous TBI including seizures and violent mood swings. He is very tangential and answers not always appropriate to the questions, no family present at time of admission so hx taken from review of the record and ED provider as he cannot provide reliable hx or ROS. There is report he has been taking more of his meds than Rx'd with pills unaccounted for; also reports of visual hallucinations. Pt reports REESE that is dull aching left sided parietal area pain that is constant since a head strike after seizure one week ago while lying on the couch. Interestingly he can recount the names and doses of his meds accurately, at least when compared to pill bottles available at the bedside, but cannot remember events of the last 24-48hrs including how or why he got to the hospital. eval in ED shows hypoxia with RA sats in high 80's and ct chest findings of possible multifocal airspace disease. as a result we were asked to admit for further evaluation and management. he received levaquin prior to my arrival. he was evaluated by mental health who recommended changes to his usual home regimen but did not feel he warranted IVC and placment at this time. his son Quinn, reports finding him an inpatient detox and mental health facility called [facility] in [place], [place] where he intends to take him upon discharge. he has shown good improvement with rocephin/zmax and is no longer requiring supplemental O2, he is afebrile and VSS. he is more alert and appropriate, nursing reports no bizarre behaviours or aggression until last night when he repeatedly climbed out of bed and wandered the halls looking for a place to "urinate and shower to get ready for work" (used to work as manager real estate). He was given dose of ativan, redirected to bed and sitter placed at doorway to reorient and calm him. This morning the sitter witnessed what she described as tonic-clonic muscle contractions, he went unresponsive and rigid and by the time they got him into recovery position the seizure subsided. he was administered an additional ativan 2Mg. When I arrived he was postictal, still confused with no recollection of the night's events or the seizure, states he has occipital REESE and sore neck and muscles. PE showed eyelid fluttering, tongue fasciculations, cogwheeling bilat wrists and 2-3 beat clonus of bilat ankles. speech was clear, no facial asymmetry, mood and affect appropriate and no other focal findings on exam. Mg is 1.6, Phos 4.4, ammonia 14, B12 685 and CK 71 immediately post-event. Chem-[address] head shows old surgical changes but nothing acute. Unfortunately we do not have EEG anymore, he cannot get MRI due to metal plate in his head and no neurologist for consultation. I changed his keppra to IV and contacted [facility] who very graciously agreed to accept in transfer for further neurologic evaluation and management. he is agreeable to transfer. I spoke with his son Quinn who is also agreeable to transfer. He is stable for transfer at this time. Physical Exam Vital Signs: Temp Pulse Resp BP Pulse Ox 97.8 F 88 20 118/79 96 10/01/16 07:40 10/01/16 07:40 10/01/16 07:40 10/01/16 07:40 10/01/16 07:40 Intake & Output 09/30/16 10/01/16 10/02/16 06:59 06:59 06:59 Intake Total 3636 2804 Output Total 0 Balance 3636 2804 Weight 120.6 kg 121.1 kg General appearance: PRESENT: no acute distress, obese, well-developed, well- nourished Head exam: PRESENT: atraumatic, normocephalic Eye exam: PRESENT: EOMI, other - eyelid fluttering. ABSENT: conjunctival injection, nystagmus, scleral icterus Mouth exam: PRESENT: moist, neck supple Neck exam: PRESENT: full ROM, tenderness - point tenderness to insertion of trapezius left occiput. ABSENT: lymphadenopathy, meningismus Respiratory exam: PRESENT: clear to auscultation chika. ABSENT: accessory muscle use, unlabored Cardiovascular exam: PRESENT: RRR. ABSENT: systolic murmur Pulses: PRESENT: normal radial pulses, normal dorsalis pedis pul Vascular exam: PRESENT: normal capillary refill GI/Abdominal exam: PRESENT: normal bowel sounds, soft. ABSENT: organolmegaly, tenderness Extremities exam: ABSENT: calf tenderness, clubbing, joint swelling, pedal edema Musculoskeletal exam: PRESENT: full ROM - strength is 5/5 bilat. ABSENT: tenderness Neurological exam: PRESENT: alert, awake, oriented to person, oriented to place , other - clonus and cogwheeling as noted in HPI. ABSENT: oriented to time, oriented to situation, reflexes normal - dminished at patella, 1+ at best Psychiatric exam: PRESENT: appropriate affect, normal mood Focused psych exam: ABSENT: flight of ideas, pressured speech, psychomotor agitation, restlessness Skin exam: PRESENT: warm. ABSENT: rash Results Laboratory Results: 10/01/16 07:13 10/01/16 07:13 10/01/16 10/01/16 10/01/16 07:13 07:13 08:35 WBC 9.0 RBC 6.10 H Hgb 13.6 Hct 44.2 MCV 73 L MCH 22.4 L MCHC 30.8 L RDW 17.8 H Plt Count 229 Seg Neutrophils % 69.1 Lymphocytes % 20.2 Monocytes % 7.1 Eosinophils % 3.2 Basophils % 0.4 Absolute Neutrophils 6.2 Absolute Lymphocytes 1.8 Absolute Monocytes 0.6 Absolute Eosinophils 0.3 Absolute Basophils 0.0 Sodium 142.4 Potassium 4.0 Chloride 103 Carbon Dioxide 29 Anion Gap 10 BUN 11 Creatinine 0.84 Est GFR ( Amer) > 60 Est GFR (Non-Af Amer) > 60 Glucose 91 Calcium 9.7 Phosphorus 4.4 Magnesium 1.6 Ammonia Vitamin B12 685.0 10/01/16 08:35 WBC RBC Hgb Hct MCV MCH MCHC RDW Plt Count Seg Neutrophils % Lymphocytes % Monocytes % Eosinophils % Basophils % Absolute Neutrophils Absolute Lymphocytes Absolute Monocytes Absolute Eosinophils Absolute Basophils Sodium Potassium Chloride Carbon Dioxide Anion Gap BUN Creatinine Est GFR ( Amer) Est GFR (Non-Af Amer) Glucose Calcium Phosphorus Magnesium Ammonia 14.0 Vitamin B12 10/01/16 08:35 Creatine Kinase 71 Impressions: Chest X-Ray 09/29/16 00:50 IMPRESSION: Pulmonary vascular congestion. Moderate lung volumes. Chest/Abdomen CTA 09/29/16 04:11 IMPRESSION: Small multifocal pneumonia, atelectasis, and/or scar. No pulmonary emboli. Head CT 09/29/16 06:02 IMPRESSION: No acute findings. Right posterior parietal craniotomy hardware. Plan Discharge Plan: transfer to [facility] for further evaluation Time Spent: Greater than 30 Minutes
[2016-10-01 12:43] VITALS: BP 111/98
[2016-10-01] MEDS: AZITHROMYCIN 500 MG in DEXTROSE 5%-WATER 250 ML IV SCH (15:23)
== END 2016-10-01 16:06 | disposition short-term general hospital (02) | DRG 194 ==
LOC: ER 00:27 → UNDOADMIN 07:54 → EH 07:54 → 3W 10:10
PROVIDERS: ADMIT Internal Medicine; ATTEND Internal Medicine
DX: J18.9 Pneumonia, unspecified organism (principal); G40.802 Other epilepsy, not intractable, without status epilepticus; G94 Other disorders of brain in diseases classified elsewhere; R09.02 Hypoxemia; F32.9 Major depressive disorder, single episode, unspecified; Z91.14 Patient's other noncompliance with medication regimen; Z95.0 Presence of cardiac pacemaker; Z91.5 Personal history of self-harm; Z87.820 Personal history of traumatic brain injury; Z79.899 Other long term (current) drug therapy
CPT/HCPCS: 36415; 70450; 71010; 71275; 80048; 80053; 80307; 81001; 82140; 82550; 82553; 82607; 82803; 83735; 83880; 84100; 84484; 85025; 87040; 93005; 93010; 99285; J0456; J0696; J1650; J1953; J1956; J3490; J7030; J7060